=== PATIENT | male | born 1950 | race Caucasian/White ===

== ENCOUNTER 2017-06-15 21:15 | Emergency (ER) | payer OTHER ==
[~2017-06-15] VITALS: Ht 177.8 cm; Wt 117.3 kg
[2017-06-15 21:23] VITALS: TEMP 97.5
[2017-06-15] MEDS ORDERED: LAMISIL250 M1 (21:44)
[2017-06-15] MEDS ORDERED: CLARITIN 1010 MG/TAB PO (21:44)
[2017-06-15 21:58] VITALS: BP 157/969; PULSE 70
== END 2017-06-15 22:25 | disposition home or self-care (01) ==
LOC: COL.ER 21:15
DX: H11.32 Conjunctival hemorrhage, left eye (principal)

== ENCOUNTER → 2018-04-05 | Outpatient (CLI) | payer OTHER ==
[~2018-04-05] MED LIST: CLARITIN 1010 MG/TAB PO; LAMISIL250 M1
== END ==
LOC: COL.RAD 12:00
DX: M19.011 Primary osteoarthritis, right shoulder (principal)